=== PATIENT | male | born 1975 | race American Indian/Alaskan Native ===

== ENCOUNTER 2019-10-19 01:23 | Emergency (ER) | payer MEDICAID, SELFPAY ==
[2019-10-19] VITALS (69 sets, daily range): BP systolic 133–187; BP diastolic 69–118; PULSE 113–147; RESP 18–25; TEMP 36.9; O2SAT 86–97; BMI 26.5
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
--- NOTE | 2019-10-19 02:15 | PC.NURSE ---
Placed patient on 2L of oxygen via nasal cannula per the nurse
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
[2019-10-19] MEDS: ipratropium-albuterol 3 mL Neb INHALATION (02:58)
[2019-10-19] MEDS: HYDROcodone-acetaminophen 5-325 mg Tablet 1 TAB PO (03:03)
--- NOTE | 2019-10-19 04:23 | ECG_ITS ---
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 [email or web address]
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
[2019-10-19] MEDS: ondansetron 2 mg/ML SDV 2 mL 4 MG IVP (04:33)
[2019-10-19] MEDS: fentaNYL 50 mcg/mL INJ 2mL 25 MCG IVP (04:34)
[2019-10-19 04:48] LABS: Hematocrit 37.9 % (42.0-52.0); Hemoglobin 12.9 g/dL (11.7-16.6); Mean Corpuscular Hemoglobin 31.9 pg (28.0-34.0); Mean Corpuscular Volume 93.6 fL (80-94); Mean Platelet Volume 9.9 fL (7.4-10.4); Platelet Count 67 10^3/cmm (130-400); Red Blood Count 4.05 10^6/uL (4.1-5.3); Red Cell Distribution Width 14.5 % (12.1-15.1); White Blood Count 7.8 10^3/uL (4.0-10.0)
[2019-10-19] MEDS: sodium chloride 0.9% 1,000 ML 999 ML IV ×2 (04:50→06:24)
[2019-10-19] MEDS: HYDROmorphone 1 mg/mL INJ 1 mL IVP (04:56)
[2019-10-19 04:57] LABS: INR 1.29 (0.8-1.2)
[2019-10-19 05:00] LABS: Alanine Aminotransferase 52 U/L (0-41); Albumin Level 4.2 g/dL (3.5-5.2); Alkaline Phosphatase 173 IU/L (40-130); Anion Gap 17.7 (5-19); Aspartate Amino Transferase 98 U/L (0-40); Blood Urea Nitrogen 4 mg/dL (6-20); Calcium 8.6 mg/Dl (8.6-10.0); Carbon Dioxide 22 mmol/L (22-29); Chloride 98 mmol/L (98-107); Globulin 3.8 g/dL (1.3-4.6); Glucose 110 mg/dL (74-109); Potassium 3.7 mmol/L (3.5-5.1); Sodium 134 mmol/L (136-145); Total Bilirubin 2.6 mg/dL (0.15-1.2)
[2019-10-19] MEDS: iodixanol 320 mg/mL 100mL Btl IV (05:28)
[2019-10-19 05:44] LABS: Absolute Eosinophils 0.2 10^3/cmm (0.0-0.7); Absolute Segmented Neutrophil 3.6 10/cmm (1.6-7.1); Band Neutrophils Absolute 0.2 10^3/cmm (0.0-1.2); Eosinophils 3 %; Lymphocytes 47 %; Platelet Estimate Decreased (Normal); Segmented Neutrophils 47 %; Total Cells Counted 100 (0-100)
[2019-10-19] MEDS: LORazepam 1 mg Tablet PO (06:24)
[2019-10-19] MEDS: metoprolol tartrate 25 mg Tablet PO (07:10)
[2019-10-19] MEDS: metoprolol tartrate 1 mg/1 mL SDV 5 mL 2.5 MG IV (07:16)
--- NOTE | 2019-10-21 15:06 | DCPLANNER ---
lottery manager had message to speak with patient about establishing with a primary care physician. lottery manager called the phone number [phone] a recording stated that it was not a working number. lottery manager then called [phone], the person that answered the phone stated that they had not spoken with the patient in over a week and was not for sure where they were and did not have another number for patient.
== END 2019-10-19 07:43 | disposition home or self-care (01) ==
PROVIDERS: Emergency Medicine; Emergency Provider Family Medicine
DX: I10 Essential (primary) hypertension (principal); R00.0 Tachycardia, unspecified; F17.210 Nicotine dependence, cigarettes, uncomplicated; S60.415A Abrasion of left ring finger, initial encounter; Y04.8XXA Assault by other bodily force, initial encounter; Y92.481 Parking lot as the place of occurrence of the external cause
CPT/HCPCS: 71046; 71110; 71260; 74177; 80053; 85007; 85027; 85610; 93005; 94640; 96360; 96361; 96374; 96375; 99284; A6446; J1170; J2405; J3010; J3490; J7030; Q9967